=== PATIENT | male | born 1965 | race Caucasian/White ===

== ENCOUNTER 2020-12-31 06:06 | Day surgery (SDC) | payer BC ==
[2020-12-30 11:46] VITALS: BMI 25.7
[2020-12-31] MEDS ORDERED: ceFAZolin 2 GM/DEX 5% 100 ML BAG ONE (06:18)
[2020-12-31] MEDS ORDERED: Fentanyl 100 MCG/2 ML VIAL ONE ×2 (06:45→09:07)
[2020-12-31] MEDS ORDERED: Famotidine/PF 20 mg/2ml Vial ONE (06:46)
[2020-12-31] MEDS ORDERED: SUGAMMADEX SODIUM 200 MG/2 ML VIAL ONE (06:46)
[2020-12-31 06:51] LABS: #Eosinphils 0.2 thou/uL (0.0-0.7); #Lymphocytes 1.8 thou/uL (1.20-3.40); #Monocytes 0.8 thou/uL (0.11-0.59); #Neutrophils 4.7 thou/uL (1.40-6.50); %Basophils 0.6 % (0.0-1.0); %Eosinophils 2.6 % (0.0-10.0); %Lymphocytes 23.6 % (21.0-51.0); %Monocytes 10.4 % (0.0-10.0); %Neutrophils 62.7 % (42.0-75.0); Hemoglobin 14.2 g/dL (14.0-18.0); Mean Corpuscular HGB CONC 32.7 g/dL (32.0-36.0); Mean Corpuscular Hemoglobin 29.6 pg (27.0-31.0); Mean Corpuscular Volume 90.4 fL (78.0-98.0); Mean Platelet Volume 6.8 fL (7.4-10.4); Platelet Count 327 thou/uL (130-400); RBC Distribution Width 12.6 % (11.5-14.5); White Blood Cell (WBC) Count 7.4 thou/uL (4.8-10.8)
[2020-12-31] MEDS ORDERED: Bupivacaine 0.25% HCL 30 ML VIAL ONE (06:54)
[2020-12-31] MEDS ORDERED: Lidocaine 1% w/Epinephrine 1:100K 20 ML VIAL ONE (06:54)
[2020-12-31 07:11] LABS: Anion Gap 11 mmol/L (10-20); BUN (Urea Nitrogen) 18 mg/dL (8.4-25.7); Calc. Creatinine Clearance 126 mL/min (70-130); Calcium 9.2 mg/dL (7.8-10.44); Carbon Dioxide 23 mmol/L (22-29); Chloride 107 mmol/L (98-107); Glucose 98 mg/dL (70-105); Sodium 137 mmol/L (136-145)
[2020-12-31] MEDS ORDERED: Dexamethasone 20 MG/5 ML VIAL ONE (07:31)
[2020-12-31] MEDS ORDERED: Metoclopramide HCl 10 MG/2 ML VIAL ONE (07:31)
[2020-12-31] MEDS ORDERED: Rocuronium Bromide 10 MG/ML (10ML VIAL) ONE (07:31)
[2020-12-31] MEDS ORDERED: Lidocaine 1% PF 5 ML VIAL ONE (07:31)
[2020-12-31] MEDS ORDERED: Ondansetron PF 4 MG/2 ML Vial ONE (07:31)
[2020-12-31] MEDS ORDERED: Ketorolac Tromethamine 30 MG/ML VIAL ONE (07:31)
[2020-12-31] MEDS ORDERED: PROPOFOL 200 MG/20 ML VIAL ONE (07:31)
== END 2020-12-31 10:30 | disposition home or self-care (01) ==
LOC: SDC 06:06
PROVIDERS: ATTEND Surgery
PROC: 0YU54JZ Supplement Right Inguinal Region with Synthetic Substitute, Percutaneous Endoscopic Approach (ICD-10-PCS; principal; 2020-12-31)
DX: K40.90 Unilateral inguinal hernia, without obstruction or gangrene, not specified as recurrent (principal); Z79.899 Other long term (current) drug therapy
CPT/HCPCS: 80048; 85025; C1781; J1100; J1885; J2405; J2704; J2765; J3010; S0020; S0028